=== PATIENT | female | born 1960 | race Caucasian/White ===

== ENCOUNTER → 2016-12-31 14:16 | Outpatient (CLI) | payer OTHER ==
[2012-10-12 12:18] VITALS: BMI 40.0
[~2016-12-31 14:16] MED LIST: ABILIFY2 MG PO; LAMICTAL25 MG PO; PRISTIQ100 MG PO
== END | disposition home or self-care (01) ==
LOC: D.MAMMO 12-12 09:00
DX: Z12.31 Encounter for screening mammogram for malignant neoplasm of breast (principal)

== ENCOUNTER → 2017-05-29 15:19 | Outpatient (CLI) | payer OTHER ==
[2012-10-12 12:18] VITALS: BMI 40.0
== END | disposition home or self-care (01) ==
LOC: D.MRI 15:19
DX: M25.511 Pain in right shoulder (principal)

== ENCOUNTER 2019-11-05 14:00 | Outpatient (CLI) | payer OTHER ==
[2012-10-12 12:18] VITALS: BMI 40.0
== END 2019-11-05 23:59 | disposition home or self-care (01) ==
LOC: D.MAMMO 14:00
PROVIDERS: ATTEND Family Medicine
DX: Z12.31 Encounter for screening mammogram for malignant neoplasm of breast (principal)